=== PATIENT | female | born 1965 | race American Indian/Alaskan Native ===

== ENCOUNTER 2018-01-25 08:12 | Day surgery (SDC) | payer MEDICAID ==
[2018-01-25] MEDS ORDERED: ePHEDrine 50 mg/ml Inj ONE (10:19)
[2018-01-25] MEDS ORDERED: Propofol 10 mg/ml Inj (20 ML) ONE ×4 (10:19→10:54)
[2018-01-25] MEDS ORDERED: Lidocaine Hydrochloride 5 ML INJ ONE (10:19)
[2018-01-25] MEDS ORDERED: Midazolam 2 MG/2 ML VIAL ONE (10:27)
[2018-01-25 10:33] VITALS: O2SAT 100
[2018-01-25 11:33] VITALS: TEMP 98.5
[2018-01-25 11:56] VITALS: RESP 16
[2018-01-25 11:57] VITALS: BP 151/90; PULSE 60
== END 2018-01-25 13:00 | disposition home or self-care (01) ==
LOC: C.ENDO 08:12
PROVIDERS: ATTEND Internal Medicine
DX: Z12.11 Encounter for screening for malignant neoplasm of colon (principal); K59.09 Other constipation; D12.2 Benign neoplasm of ascending colon; K63.5 Polyp of colon; Z87.891 Personal history of nicotine dependence; K57.30 Diverticulosis of large intestine without perforation or abscess without bleeding; K64.8 Other hemorrhoids
CPT/HCPCS: 45380; 45385; 88305; J2250; J2704